=== PATIENT | female | born 2000 | race Caucasian/White ===

== ENCOUNTER → 2023-07-20 | Outpatient (CLI) | payer SELFPAY ==
[2023-07-22 00:10] LABS: CHLAMYDIA TRACHOMATIS, NAA Negative (Negative)
== END ==
LOC: LAB 13:38 → LAB SHORT 13:38
PROVIDERS: Advanced Practice Midwife
DX: Z11.3 Encounter for screening for infections with a predominantly sexual mode of transmission (principal)
CPT/HCPCS: 87491; 87591

== ENCOUNTER 2023-11-05 07:37 | Day surgery (SDC) | payer OTHER ==
[~2023-11-05] VITALS: Ht 160 cm; Wt 40.2 kg
[2023-11-05] VITALS (27 sets, daily range): BP systolic 85–137; BP diastolic 44–87
[~2023-11-05 07:37] MED LIST: ALBU90OI INH; ONDA4 PO; RIZATRIPTAN10 MG SL; SERT100 PO; TOPI100 PO
--- NOTE | 2023-11-05 08:46 | NUR ---
Ambulatory in Day Surgery History, Chart, Medications and Allergies reviewed before start of procedure.Pre-Op teaching done. Pt verbalizes understanding. Patient States Post-Procedure ride home has been arranged.
--- NOTE | 2023-11-05 09:30 | NUR ---
11/05/23 0930 Mary Pendleton HISTORY, CHART, MEDICATIONS AND ALLERGIES REVIEWED BEFORE START OF PROCEDURE. PATIENT CONFIRMS NPO STATUS AND AGREES WITH SCHEDULED PROCEDURE. 3-LEAD EKG REVIEWED WITH PHYSICIAN PRIOR TO START OF PROCEDURE. MONITOR INTACT WITH CONTINUOUS PULSE OXIMETRY,CAPNOGRAPHY, 3-LEAD EKG, INTERMITTENT BP. SUPPLEMENTAL O2 TO BE TITRATED THROUGHOUT PROCEDURE TO MAINTAIN O2 SATURATION ABOVE 90%. PATIENT DETERMINED TO BE ASA APPROPRIATE FOR PROPOFOL SEDATION PRIOR TO START OF PROCEDURE BY .
--- NOTE | 2023-11-05 10:39 | NUR ---
Discharge instructions reviewed with patient. Patient verbalizes understanding. Copy given to patient to take home. Patient States Post-Procedure ride home has been arranged. Discharged via wheelchair to private car for ride home.
== END 2023-11-05 10:30 | disposition home or self-care (01) ==
LOC: ORSCMMR 07:37 → ORD 08:30 → ORSCMMR 10:30
PROVIDERS: Internal Medicine Gastroenterology
PROC: 0DBE8ZX Excision of Large Intestine, Via Natural or Artificial Opening Endoscopic, Diagnostic (ICD-10-PCS; principal; 2023-11-05 08:30)
PROC: 0DB98ZX Excision of Duodenum, Via Natural or Artificial Opening Endoscopic, Diagnostic (ICD-10-PCS; principal; 2023-11-05 08:30)
PROC: 0DB48ZX Excision of Esophagogastric Junction, Via Natural or Artificial Opening Endoscopic, Diagnostic (ICD-10-PCS; principal; 2023-11-05 08:30)
PROC: 0DB58ZX Excision of Esophagus, Via Natural or Artificial Opening Endoscopic, Diagnostic (ICD-10-PCS; principal; 2023-11-05 08:30)
PROC: 0DB78ZX Excision of Stomach, Pylorus, Via Natural or Artificial Opening Endoscopic, Diagnostic (ICD-10-PCS; principal; 2023-11-05 08:30)
DX: K62.5 Hemorrhage of anus and rectum (principal); R10.13 Epigastric pain; K21.9 Gastro-esophageal reflux disease without esophagitis; J45.909 Unspecified asthma, uncomplicated; F32.A Depression, unspecified; Z79.899 Other long term (current) drug therapy
CPT/HCPCS: 88305; 88312; 88342; A9270; J2250; J2405; J2704; J7120

== ENCOUNTER → 2024-01-22 | Outpatient (CLI) | payer OTHER ==
[2024-01-22 20:19] LABS: Bacterial Vaginosis PCR Negative (NEGATIVE); Candida Group, PCR NOT DETECTED (NOT DETECT); Candida glabrata-krusei, PCR NOT DETECTED (NOT DETECT)
== END ==
LOC: LAB SHORT 14:32
PROVIDERS: Advanced Practice Midwife
DX: N76.0 Acute vaginitis (principal)
CPT/HCPCS: 87481; 87661; 87801

== ENCOUNTER → 2025-02-02 | Outpatient (CLI) | payer OTHER | LOC: LAB SHORT 11:01 → LAB 11:01 | DX: O09.90 Supervision of high risk pregnancy, unspecified, unspecified trimester (principal) | CPT/HCPCS: 87081; 87150 ==

== ENCOUNTER 2025-02-23 07:02 | Inpatient (IN) | payer OTHER ==
[2025-02-23] VITALS (33 sets, daily range): BP systolic 113–142; BP diastolic 55–96
[~2025-02-23] VITALS: Ht 160 cm; Wt 56.8 kg
[2025-02-23] MEDS ORDERED: Lactated Ringer's 1,000 ML IV PRN ×3 (07:40)
[2025-02-23] MEDS ORDERED: Ondansetron HCl 2 MG / ML 2ML Vial IV PRN (07:40)
[2025-02-23] MEDS ORDERED: OXYTOCIN/RINGER'S LACTATE 500 ML IV PRN (07:40)
[2025-02-23] MEDS ORDERED: Acetaminophen 500 MG Tab PO PRN ×2 (07:40→17:20)
[2025-02-23] MEDS ORDERED: ePHEDrine Sulfate 50 MG/ML 1ML Injection XX PRN (07:40)
[2025-02-23] MEDS ORDERED: Methylergonovine Maleate 0.2MG / ML 1ML Amp IM PRN ×2 (07:40→17:25)
[2025-02-23] MEDS ORDERED: Calcium Carbonate 500 MG Tab Chew PO PRN (07:40)
[2025-02-23] MEDS ORDERED: Misoprostol 200 MCG Tab BC PRN (07:40)
[2025-02-23] MEDS ORDERED: Misoprostol 200 MCG Tab PR PRN ×2 (07:40→17:25)
[2025-02-23] MEDS ORDERED: Oxytocin 10 Unit / ML Vial IM PRN (07:40)
[2025-02-23] MEDS ORDERED: Carboprost Tromethamine 250 MCG/ML 1ML Amp IM PRN ×2 (07:40→17:20)
[2025-02-23] MEDS ORDERED: FentaNYL 2mcg/ml-Bup 0.1% Epd 250 ML EPI PRN (07:40)
[2025-02-23] MEDS ORDERED: PRENATAL TABLE1 EAC2 PO (07:49)
[2025-02-23] MEDS ORDERED: FAMO20 (07:49)
[2025-02-23] MEDS ORDERED: Tranexamic Acid 100 ML IV PRN (07:50)
[2025-02-23 07:55] LABS: BASOPHILS ABSOLUTE AUTO 0.05 K/mm3 (0.00-0.23); BASOPHILS PERCENT AUTO 1 % (0-2); EOSINOPHILS ABSOLUTE AUTO 0.13 K/mm3 (0.00-0.68); EOSINOPHILS PERCENT AUTO 1 % (0-6); Hemoglobin 10.4 g/dL (11.5-16.0); IMMATURE GRAN ABSOLUTE AUTO 0.31 K/mm3 (0.00-0.10); IMMATURE GRAN PERCENT AUTO 3 % (0-1); LYMPHOCYTES ABSOLUTE AUTO 2.27 K/mm3 (0.84-5.20); LYMPHOCYTES PERCENT AUTO 22 % (21-46); MONOCYTES ABSOLUTE AUTO 1.01 K/mm3 (0.16-1.47); MONOCYTES PERCENT AUTO 10 % (4-13); Mean Corpuscular HGB Conc 32.5 g/dL (31.5-36.5); Mean Corpuscular Volume 77 fL (80-100); Mean Platelet Volume 10.2 fL (9.1-12.4); NEUTROPHILS ABSOLUTE AUTO 6.66 K/mm3 (1.96-9.15); NEUTROPHILS PERCENT AUTO 64 % (41-73); Platelet Count 243 K/mm3 (150-400); RDW Coefficient Variation 13.7 % (11.7-14.2); RDW Standard Deviation 38.1 fL (35.1-46.3); Red Blood Cell Count 4.16 M/mm3 (3.80-5.20); White Blood Cell Count 10.43 K/mm3 (4.00-11.30)
[2025-02-23] MEDS ORDERED: FentaNYL Citrate 50 MCG/ML 2 ML Injection ONE (15:06)
[2025-02-23] MEDS ORDERED: FentaNYL Citrate 50 MCG/ML 2 ML Injection IV SCH (15:10)
[2025-02-23] MEDS ORDERED: FentaNYL Citrate 50 MCG/ML 2 ML Injection IV PRN (16:00)
[2025-02-23] MEDS ORDERED: Witch Hazel/Glycerin PADS TOP PRN (17:20)
[2025-02-23] MEDS ORDERED: Benzocaine Topical Anesthetic Spray 60GM TOP PRN (17:20)
[2025-02-23] MEDS ORDERED: Ibuprofen 400 MG Tab PO PRN (17:20)
[2025-02-23] MEDS ORDERED: Lanolin Cream TOP PRN (17:25)
[2025-02-23] MEDS ORDERED: Lactated Ringer's 1,000 ML IV SCH (17:25)
[2025-02-23] MEDS ORDERED: Docusate Sodium 100 MG Cap PO PRN (17:25)
[2025-02-23] MEDS ORDERED: OXYTOCIN/RINGER'S LACTATE 500 ML IV SCH (17:25)
[2025-02-23] MEDS ORDERED: Ketorolac Tromethamine 30mg Vial IV PRN (17:25)
[2025-02-23] MEDS ORDERED: Oxytocin 10 Unit / ML Vial IM ONE (17:30)
[2025-02-24 04:35] VITALS: BP 122/81
[2025-02-24 06:21] LABS: BASOPHILS ABSOLUTE AUTO 0.05 K/mm3 (0.00-0.23); BASOPHILS PERCENT AUTO 0 % (0-2); EOSINOPHILS ABSOLUTE AUTO 0.18 K/mm3 (0.00-0.68); EOSINOPHILS PERCENT AUTO 1 % (0-6); Hematocrit 30.3 % (33.0-51.0); Hemoglobin 9.9 g/dL (11.5-16.0); IMMATURE GRAN ABSOLUTE AUTO 0.25 K/mm3 (0.00-0.10); IMMATURE GRAN PERCENT AUTO 2 % (0-1); LYMPHOCYTES ABSOLUTE AUTO 2.38 K/mm3 (0.84-5.20); LYMPHOCYTES PERCENT AUTO 17 % (21-46); MONOCYTES ABSOLUTE AUTO 1.46 K/mm3 (0.16-1.47); MONOCYTES PERCENT AUTO 11 % (4-13); Mean Corpuscular HGB 24.9 pg (26.0-34.0); Mean Corpuscular HGB Conc 32.7 g/dL (31.5-36.5); Mean Corpuscular Volume 76 fL (80-100); Mean Platelet Volume 10.1 fL (9.1-12.4); NEUTROPHILS ABSOLUTE AUTO 9.59 K/mm3 (1.96-9.15); NEUTROPHILS PERCENT AUTO 69 % (41-73); Platelet Count 220 K/mm3 (150-400); RDW Coefficient Variation 13.6 % (11.7-14.2); RDW Standard Deviation 37.8 fL (35.1-46.3); Red Blood Cell Count 3.97 M/mm3 (3.80-5.20); White Blood Cell Count 13.91 K/mm3 (4.00-11.30)
[2025-02-24] MEDS ORDERED: Prenatal Vit/FE Fumarate/FA 1 Tab PO SCH (09:00)
[2025-02-24 09:11] VITALS: BP 143/65
--- NOTE | 2025-02-24 09:17 | NUR ---
CARE MANAGEMENT CARE MANAGEMENT WORKER VERBALIZED PT SEEMING TO BE UNCOMFORTABLE GIVEN FULL INFOMATION DURING HER ASSESSMENT. MANAGER SHELL VERBALIZED IMPORTANCE OF FOLLOWING UP WITH PROVIDER AND POSSIBLE THERAPIST DUE TO SEVERITY OF PREVIOUS DEPRESSION WITH SUICIDAL IDEATIONS AND THOUGHTS OF HARMING .
[2025-02-24 12:02] VITALS: BP 132/82
== END 2025-02-24 18:40 | disposition home or self-care (01) | DRG 807 ==
LOC: OBS 07:02 → BC 07:03 → OBS 07:10 → BC 07:12
PROVIDERS: ADMIT Advanced Practice Midwife
PROC: 10E0XZZ Delivery of Products of Conception, External Approach (ICD-10-PCS; principal; 2025-02-23)
PROC: 10907ZC Drainage of Amniotic Fluid, Therapeutic from Products of Conception, Via Natural or Artificial Opening (ICD-10-PCS; 2025-02-23)
PROC: 3E033VJ Introduction of Other Hormone into Peripheral Vein, Percutaneous Approach (ICD-10-PCS; 2025-02-23)
PROC: 4A1HXCZ Monitoring of Products of Conception, Cardiac Rate, External Approach (ICD-10-PCS; 2025-02-23)
DX: O36.5930 Maternal care for other known or suspected poor fetal growth, third trimester, not applicable or unspecified (principal); Z37.0 Single live birth; O99.344 Other mental disorders complicating childbirth; Z3A.39 39 weeks gestation of pregnancy; F41.8 Other specified anxiety disorders; O99.02 Anemia complicating childbirth; O70.0 First degree perineal laceration during delivery
CPT/HCPCS: 36415; 51702; 85025; 86850; 86900; 86901; A9270; J1885; J2405; J2590; J3010; J7120

== ENCOUNTER → 2025-04-06 | Outpatient (CLI) | payer OTHER ==
[~2025-04-06] MED LIST changes: +FAMO20; +PRENATAL TABLE1 EAC2 PO
[2025-04-06 15:25] LABS: Bacterial Vaginosis PCR Negative (NEGATIVE); Candida Group, PCR NOT DETECTED (NOT DETECT); Candida glabrata-krusei, PCR NOT DETECTED (NOT DETECT)
== END | disposition home or self-care (01) ==
LOC: LAB 12:03 → LAB SHORT 12:03
PROVIDERS: Advanced Practice Midwife
DX: N76.0 Acute vaginitis (principal)
CPT/HCPCS: 81515